=== PATIENT | female | born 1950 | race Caucasian/White ===

== ENCOUNTER → 2020-02-19 | Outpatient (CLI) | payer MEDICARE ==
--- NOTE | 2020-02-19 08:58 | ST Modified Barium Swallow ---
Recommendation - Recommendations Recommendations: Recommend alternating solids and liquids. Patient may wish to pursue short course of dysphagia therapy. Patient should obtain referral from physician should she wish to do this. Medical Diagnoses - Medical Diagnoses Medical Diagnosis Description & ICD-10 Code(s): R13.10 dysphagia Other Medical Diagnoses/Co-Morbidities: per patient report: reflux, hiatal hernia, esophagela dilation in December - ICD-10 Tx Diagnosis Coding (1) Dysphagia, unspecified ICD-10 Code(s): R13.10 - DYSPHAGIA, UNSPECIFIED (2) Other voice and resonance disorders ICD-10 Code(s): R49.8 - OTHER VOICE AND RESONANCE DISORDERS ST Modified Barium Swallow - General Date: 02/19/20 Referring Physician: Dr. Antonio Bryson Risks/Precautions: None Date of Onset: 02/10/15 - approximate onset, patient reports "for years" Reason for Referral: difficulty swallowing - History History obtained from: Patient -: Medical - Patient arrived independently and acted as her own historian. Patient reports having difficulty swallowing "for years", reporting that things feel like they are getting stuck in her throat and causing her to cough. She specifically mentioned toast, crackers, and watermelon, as well as some of her larger pills. She reports that she was supposed to have the MBSS several months ago, but was unable to due to COVID-19 restrictions. In the interim, she had an esophageal dilation, which she reports improved her symptoms but did not eliminate them. She does report presence of reflux and hiatal hernia as well. She also reports having some "coughing spells" not associated with eating or drinking, these start with a sensation in her throat, right side, which results in prolonged dry cough. No recent history of pneumonia, patient does report getting very sick this past winter, which resulted in pneumonia. This illness also reportedly worsened her voice quality. Medications: per patient report: paxil, nexium, tiazac, radha, HCTZ Allergies: per patient report: bactrim - Functional Status Prior Functional Status: INDEPENDENT: feeding Current Functional Limitations: feeding - Subjective Patient/caregiver goal(s): better swallow Cognitive-Linguistic Function: WNL Speech Intelligibility: WNL Current Nutritional Means: PO Current PO diet: Regular Current symptoms: Coughing, c/o Globus sensation Pain: Patient reports, 0/5 - Objective Assessment: Upright, Left Lateral - Food Trials Used Food trials used: Thin liquids, Pureed, Regular The patient: Was Able to Self Feed - Oral-Motor Skills Dentition: Full Velo-pharyngeal function: Unremarkable Laryngeal Function: clear voicing - Assessment Oral prep: Normal Labial closure: Adequate Leakage: None Mastication: Adequate Lingual Movement: Normal Oral stage: Normal for this Procedure - mild oral holding seen prior to initation of the swallow, prolonging oral phase - Pharyngeal Stage Initiation of Pharyngeal Stage Reflex: Normal Decreased laryngeal elevation: No Reduced Velopharyngeal Closure: no Reduced pressure generation: Yes - mild reduced tongue-based retraction: Yes - mild Pre-swallow pooling in valleculae: None Pre-Swallow pooling in pyriforms: None Reduced Thyro-Hyoid approximation: No Reduced epiglottic excursion: No Reduced pharyngeal peristalsis/contraction: Yes - mild Multiple Swallows with: Effective Post-swallow residulas vallecular: Mild Post-Swallow residuals in pyriforms: Mild Post-Swallow Residuals: Posterior pharyngeal wall - with alex cracker trial Reduced Cricopharyngeal opening: No - Fall Risk Assessment Medications/Conditions that increase fall risks include: Antidepressants, sedatives, anti-arrhythmic, diuretic, benzodiazipenes, neuroleptics. BP regulation problems, cardiac problems, balance or gait deficits, neurological problems. Is patient considered at risk for falls: no Fall Risk Actions Taken: No action needed - Behavioral Observations During evaluation process patient: was pleasant, was cooperative, able to answer questions - Treatment / Educational Needs: Treatment/Education Needs: Treatment consisted of patient education on the role of the Speech Pathologist. Patient's plan of care and golas were communicated as well as scheduling and attendance policies. Recommendations for initial home program were shared. Patient demonstrated understanding and verbalized agreement. - Impression/Summary Laryngeal Penetration: No Tracheal Aspiration: no Patient presents with: Oral-Pharyngeal dysph. - mild Risk of Aspiration: Minimal Evaluation and Findings: Patient demonstrated overall swallowing skills grossly within functional limits. The patient did demonstrate some pharyngeal residue, mild with puree, increasing with regular solid due to mildly reduced base of tongue retraction and pharyngeal constriction. Residue in the pharynx cause the patient to cough x1, however, no material entered the laryngeal vestibule. Residue cleared with second swallow or liquid wash. The patient demonstrated mild discoordination with swallowing, characterized by mild oral holding or "hesitation" prior to pharyngeal swallow initiating. The patient also demonstrated prolonged pharyngeal squeeze during the swallow, which interfered with trials for sequential swallows, and also indicated patient sensation of globus. - Recommendations Solid diet recommendations: Regular Liquid Diet Modification: Thin Pt/Family education and followup with MD: Yes Dysphagia therapy with INTERNET MARKETING STRATEGIST: dysphagia therapy - patient may wish to pursue dysphagia treatment. She will contact her physician for a referral if she things this will be benefiical Recommended techniques: Fully Upright During Meal, Small Bites and Sips, Alternate Bites/Sips Information, Precautions and Recommendations: Patient (Written), Patient (Verbal) - Time Total Time: 30 - Plan of Care Strategies to optimize patient understanding include:: ongoing assessment of educational needs, implementation of educational strategies, and re-education. - - -: Thank you for the opportunity to work with this patient and his/her family. Should you have any questions about this patient's plan or progress, I can be reached at [phone].
--- NOTE | 2020-02-19 12:31 | RADIOLOGY REPORT (SQ) ---
EXAM DESCRIPTION: COOKIE SWALLOW IMAGES COMPLETED DATE/TIME: 02/19/2020 8:41 am REASON FOR STUDY: DYSPHAGIA (R13.10), OTHER VOICE DISTURBANCE (R49.8) R13.10 DYSPHAGIA, UNSPECIFIED R49.8 OTHER VOICE AND RESONANCE DISORDERS recent esophageal dilatation COMPARISON: None. TECHNIQUE: Videofluoroscopic swallowing examination was performed in conjunction with speech patholo gy. Videofluoroscopic imaging was obtained and reviewed and these are the findings: RADIATION DOSE: 50 seconds of fluoroscopy was used. 1 images saved to PACS. LIMITATIONS: None FINDINGS: The patient was brought into the fluoro room and placed upright on a modified barium swall ow chair. The patient was then given multiple consistencies mixed with barium to swallow under live fluoroscopic video guidance. According to the Speech Pathologist there was no penetration or aspirat ion. Mild cricopharyngeal hypertrophy. IMPRESSION: NO EVIDENCE OF PENETRATION OR ASPIRATION. PLEASE SEE SPEECH PATHOLOGIST REPORT FOR OTHER FINDINGS AND RECOMMENDATIONS. COMMENT: Quality ID [id number]: Final reports for procedures using fluoroscopy that document radiation exp osure indices, or exposure time and number of fluorographic images (if radiation exposure indices are not available) TECHNICAL DOCUMENTATION: JOB ID: [id number] 2010 [employer]- All Rights Reserved Reading location - IP/workstation name: [email or web address] [id number]
== END ==
LOC: RAD 07:53
PROVIDERS: ATTEND Otolaryngology
DX: R13.10 Dysphagia, unspecified (principal); R49.8 Other voice and resonance disorders
CPT/HCPCS: 74230